=== PATIENT | female | born 1990 | race Caucasian/White ===

== ENCOUNTER 2023-10-23 18:13 | Emergency (ER) | payer OTHER ==
[2023-10-23 18:31] VITALS: BP 127/73; PULSE 72; RESP 16; TEMP 98.1; BMI 26.3
[2023-10-23] MEDS ORDERED: SODIUM CHLORIDE 1,000 ML IV ONE (18:40)
[2023-10-23 19:17] LABS: HEMATOCRIT 41.6 % (32.4-45.2); HEMOGLOBIN 13.9 G/dL (10.7-15.3); MCH 29.2 pg (25.7-33.7); MCHC 33.4 g/dl (32.0-36.0); MEAN CELL VOLUME 87.4 fl (80-96); PLATELET COUNT 253.8 10^3/uL (134-434); RBC 4.76 10^6/uL (3.60-5.2); RDW 13.5 % (11.6-15.6); WHITE BLOOD COUNT 6.4 10^3/uL (4.0-10.8)
[2023-10-23 19:20] LABS: INR 1.04 (0.83-1.09); PROTHROMBIN TIME (PATIENT) 12.1 SEC (9.7-13.0)
[2023-10-23 19:22] LABS: ACTIVATED PTT 29.9 SECONDS (25.2-36.5)
[2023-10-23 19:29] LABS: ALBUMIN 4.7 g/dl (3.4-5.0); ALK PHOS 57 U/L (45-117); ANION GAP 7 mmol/L (4-13); BILIRUBIN,TOTAL 0.3 mg/dl (0.2-1); CALCIUM 9.5 mg/dl (8.5-10.1); CHLORIDE 103 mmol/L (98-107); CO2 28 mmol/L (21-32); CREATININE 0.7 mg/dl (0.6-1.3); GLUCOSE,RANDOM 87 mg/dl (74-106); MAGNESIUM 1.9 mg/dL (1.8-2.4); POTASSIUM 4.2 mmol/L (3.5-5.1); SGOT/AST 17 U/L (15-37); SGPT/ALT 16 U/L (7-52); SODIUM 138 mmol/L (136-145); TOT PROT 7.4 g/dl (6.4-8.2)
[2023-10-23 19:32] LABS: PLATELET ESTIMATE ADEQUATE
== END 2023-10-23 20:34 | disposition home or self-care (01) ==
LOC: FER 18:13
PROC: 3E0337Z Introduction of Electrolytic and Water Balance Substance into Peripheral Vein, Percutaneous Approach (ICD-10-PCS; principal; 2023-10-23)
DX: S16.1XXA Strain of muscle, fascia and tendon at neck level, initial encounter (principal); R07.89 Other chest pain; R09.1 Pleurisy; R51.9 Headache, unspecified; X58.XXXA Exposure to other specified factors, initial encounter
CPT/HCPCS: 0241U-QW; 36415; 71275-TC; 80053; 83735; 84484; 85027; 85610; 85730; 93005; 99285-25; Q9967